=== PATIENT | female | born 1950 ===

== ENCOUNTER 2023-04-12 10:48 | Inpatient (IN) | payer OTHER ==
[~2023-04-12] VITALS: Ht 160 cm; Wt 0.5 kg
[2023-04-13] MEDS ORDERED: IRBESARTAN150 MG PO (08:15)
[2023-04-13] MEDS ORDERED: CARVEDILOL3.125 MG PO (08:16)
[2023-04-19] MEDS ORDERED: BREO ELLIPTA I1 EACH (11:04)
[2023-04-19] MEDS ORDERED: MAXIMUM D3325 MCG (11:04)
[2023-04-19] MEDS ORDERED: IBANDRONATE SO150 MG (11:05)
[2023-04-19] MEDS ORDERED: LEVALBUTEROL TA15 GM (11:05)
[2023-04-19] MEDS ORDERED: ACETAMINOPHEN500 M2 PO (11:32)
[2023-04-19] MEDS ORDERED: NEURONTIN300 MG PO (11:33)
== END 2023-04-19 12:44 | disposition home or self-care (01) | DRG 330 ==
LOC: SURH 04-15 05:03 → O/R 04-15 05:03 → SURG 04-15 07:00 → O/R 04-15 12:02 → SURG 04-15 12:30 → SURH 04-15 13:48
PROVIDERS: Internal Medicine; Surgery; ADMIT Surgery; ATTEND Surgery
PROC: 07BB4ZZ Excision of Mesenteric Lymphatic, Percutaneous Endoscopic Approach (ICD-10-PCS; 2023-04-15)
PROC: 8E0X4CZ Robotic Assisted Procedure of Upper Extremity, Percutaneous Endoscopic Approach (ICD-10-PCS; 2023-04-15)
PROC: 0DTF4ZZ Resection of Right Large Intestine, Percutaneous Endoscopic Approach (ICD-10-PCS; principal; 2023-04-15 07:00)
DX: C18.0 Malignant neoplasm of cecum (principal); K62.5 Hemorrhage of anus and rectum; K57.30 Diverticulosis of large intestine without perforation or abscess without bleeding; R59.0 Localized enlarged lymph nodes; Z20.822 Contact with and (suspected) exposure to COVID-19; I10 Essential (primary) hypertension; Z79.4 Long term (current) use of insulin; J45.909 Unspecified asthma, uncomplicated; E11.65 Type 2 diabetes mellitus with hyperglycemia
CPT/HCPCS: 44204; 38570; S2900